=== PATIENT | female | born 1970 | race Caucasian/White ===

== ENCOUNTER 2022-01-03 16:07 | Emergency (ER) | payer BC ==
[2022-01-03] MEDS ORDERED: predniSONE 20 MG Tab PO STA (16:34)
== END 2022-01-03 17:20 | disposition home or self-care (01) ==
LOC: FB.ED 16:07
DX: G51.9 Disorder of facial nerve, unspecified (principal); Z79.899 Other long term (current) drug therapy
CPT/HCPCS: 99283; A9270; J7512

== ENCOUNTER 2022-08-13 16:41 | Emergency (ER) | payer BC, MEDICAID | END 2022-08-13 17:44 | disposition home or self-care (01) | LOC: FB.ED 16:41 | DX: M54.10 Radiculopathy, site unspecified (principal); Z88.8 Allergy status to other drugs, medicaments and biological substances | CPT/HCPCS: 99283 ==